=== PATIENT | male | born 1945 | race Caucasian/White ===

== ENCOUNTER 2016-10-15 12:49 | Observation (INO) | payer MEDICARE, OTHER ==
[~2016-10-15 12:49] MED LIST: AMLODIPINE BESY10 M1 PO; ASPIR 8181 MG PO; ASPIRIN325 M1 PO; ASPIRIN81 M1 CH; ATORVASTATIN CA40 M1 PO; AUGMENTIN875 MG PO; BYSTOLIC5 MG PO; CLONIDINE HCL0.3 M1 PO; CLOPIDOGREL75 M1 PO; COUMADIN2.5 MG PO; GABAPENTIN300 M1 PO; HUMALOG100 U/ML SQ; HYDROCHLOROTHIA25 M1 PO; HYDROCHLOROTHIA50 MG PO; LANTUS100 UNITS/ SC; LIPITOR20 MG PO; LISINOPRIL-HCT1 EAC2 PO; LISINOPRIL20 MG PO; LOSARTAN POTAS100 M1 PO; LOVENOX30 MG/0.1 SC; METOPROLOL TART50 M2 PO; MINOXIDIL2.5 M1 PO; MULTIVITAMIN1 TAB PO; NICOTINE TD; NORCO 5-325 TA1 EACH PO; NOVOLOG100 U/M SQ; NOVOLOG100 UNITS/; PLAVIX75 MG PO; PREDNISONE10 MG PO; [UNRECOGNIZED DRUG - OTHER] TD
[2016-10-15] MEDS ORDERED: ALDACTONE25 M1 PO (13:28)
[2016-10-15] MEDS ORDERED: IPRAT-ALBUT 0.5-3 ML NEB (13:42)
[2016-10-15] MEDS ORDERED: SYMBICORT 160-1 PUFF INH (13:42)
[2016-10-15] MEDS ORDERED: SYNTHROID50 MC1 PO (13:58)
[2016-10-15] MEDS ORDERED: ULTRAM50 M1 PO (14:16)
[2016-10-15 15:45] LABS: ABG CO2 ARTERIAL 29 mmol/L (21-27); ARTERIAL BLD GAS O2 SATURATION 98 % (95-98); ARTERIAL BLOOD GAS PCO2 46 mmHg (32-45); ARTERIAL PO2 94 mmHg (70-100); BICARBONATE 28 mmol/L (21-28); BLOOD GAS BASE EXCESS 3 mM/L (-/+3)
[2016-10-15 16:09] LABS: CREATININE 2.16 mg/dl (0.67-1.17); eGFR VALUE FOR BLACK 34 mL/Min
[2016-10-15 17:57] LABS: CSF APPEARANCE CLOUDY (CLEAR); CSF COLOR RED (COLORLESS); CSF RBC CT 2000 cmm (0); CSF TUBE NUMBER CSF TUBE 3; CSF WBC CT 7 cmm (0-10)
[2016-10-15 18:25] LABS: CSF GLUCOSE 102 mg/dl (40-75)
[2016-10-15 18:33] LABS: CSF EOSINOPHILS 1 % (0); CSF NEUTROPHILS 99 % (0-6)
[2016-10-16 05:02] LABS: BASO % 0.3 % (0-2); EOS % 1.5 % (0-7); EOSINOPHIL ABSOLUTE COUNT 0.2 tho/cmm (0.0-0.7); HCT-HEMATOCRIT 37.5 % (36.0-53.5); HGB-HEMOGLOBIN 11.8 gm/dl (13.5-17.0); IMMATURE GRANULOCYTES ABSOLUTE 0.01 tho/cmm (0-0.03); IMMATURE GRANULOCYTES PERCENT 0.1 % (0-0.3); LYMPH % 10.4 % (20-45); LYMPH ABSOLUTE COUNT 1.1 tho/cmm (0.8-4.5); MCHC MEAN CORPUSCULAR HGB CONC 31.5 % (32.0-36.0); MCV (MEAN CELL VOLUME) 88.9 fl (82.0-96.0); MONO % 6.3 % (0-12); MONOCYTE ABSOLUTE COUNT 0.6 tho/cmm (0.0-1.2); NEUTROPHIL ABSOLUTE COUNT 8.3 tho/cmm (1.6-8.0); NEUTROPHIL-AUTOMATED 8.3 tho/cmm (1.6-8.0); NEUTROPHILS % 81.4 % (40-80); PLATELET COUNT 208 tho/cmm (150-450); RED BLOOD COUNT 4.22 mil/cmm (4.40-5.70); RED CELL DISTRIBUTION WIDTH 13.7 % (12.4-16.4); WHITE BLOOD COUNT 10.2 tho/cmm (4.0-10.0)
[2016-10-16 05:13] LABS: ALB/GLOB RATIO 0.6 (0.8-2.0); ALBUMIN 2.8 g/dl (3.5-5.0); ALKALINE PHOSPHATASE 80 U/L (33-138); ALT/SGPT 16 U/L (12-78); ANION GAP 11 mmol/L (0-20); AST/SGOT 11 U/L (10-40); BILIRUBIN,TOTAL 0.7 mg/dl (0.0-1.5); BLOOD UREA NITROGEN 35 mg/dl (6-24); CALCIUM 8.5 mg/dl (8.5-10.5); CARBON DIOXIDE-VENOUS 32 mmol/L (22-32); CHLORIDE 107 mmol/l (96-110); CREATININE 2.17 mg/dl (0.60-1.30); GLUCOSE 133 mg/dL (70-110); SODIUM 146 mmol/L (135-145); eGFR VALUE FOR BLACK 34 mL/Min
[2016-10-17 04:37] LABS: BASO % 0.7 % (0-2); BASO ABSOLUTE COUNT 0.1 tho/cmm (0.0-0.2); EOS % 3.8 % (0-7); EOSINOPHIL ABSOLUTE COUNT 0.3 tho/cmm (0.0-0.7); HGB-HEMOGLOBIN 11.3 gm/dl (13.5-17.0); IMMATURE GRANULOCYTES ABSOLUTE 0.01 tho/cmm (0-0.03); IMMATURE GRANULOCYTES PERCENT 0.1 % (0-0.3); LYMPH % 19.9 % (20-45); LYMPH ABSOLUTE COUNT 1.5 tho/cmm (0.8-4.5); MCH (MEAN CORPUSCULAR HGB) 28.8 pg (28.0-32.0); MCHC MEAN CORPUSCULAR HGB CONC 32.3 % (32.0-36.0); MCV (MEAN CELL VOLUME) 89.1 fl (82.0-96.0); MEAN PLATELET VOLUME 10.9 cmc (9.4-12.4); MONO % 6.9 % (0-12); MONOCYTE ABSOLUTE COUNT 0.5 tho/cmm (0.0-1.2); NEUTROPHIL ABSOLUTE COUNT 5.1 tho/cmm (1.6-8.0); NEUTROPHIL-AUTOMATED 5.1 tho/cmm (1.6-8.0); NEUTROPHILS % 68.6 % (40-80); PLATELET COUNT 215 tho/cmm (150-450); RED BLOOD COUNT 3.93 mil/cmm (4.40-5.70); RED CELL DISTRIBUTION WIDTH 13.4 % (12.4-16.4); WHITE BLOOD COUNT 7.4 tho/cmm (4.0-10.0)
[2016-10-17 04:42] LABS: ANION GAP 10 mmol/L (0-20); BLOOD UREA NITROGEN 29 mg/dl (6-24); CALCIUM 8.4 mg/dl (8.5-10.5); CARBON DIOXIDE-VENOUS 31 mmol/L (22-32); CHLORIDE 107 mmol/l (96-110); CREATININE 2.24 mg/dl (0.60-1.30); GLUCOSE 209 mg/dL (70-110); POTASSIUM 4.1 mmol/L (3.7-5.1); SODIUM 144 mmol/L (135-145); eGFR VALUE FOR BLACK 33 mL/Min
[2016-10-17] MEDS ORDERED: CLEOCIN HCL300 M1 PO (10:35)
[2016-10-17] MEDS ORDERED: LASIX40 M1 PO (10:37)
== END 2016-10-17 12:20 ==
LOC: 5WE 12:49
PROVIDERS: Internal Medicine; Physician Assistant; Radiology Diagnostic Radiology; ADMIT Family Medicine
PROC: 009U3ZX Drainage of Spinal Canal, Percutaneous Approach, Diagnostic (ICD-10-PCS; principal; 2016-10-15)
PROC: B01BZZZ Fluoroscopy of Spinal Cord (ICD-10-PCS; 2016-10-15)
DX: G93.40 Encephalopathy, unspecified (principal); L03.115 Cellulitis of right lower limb; E66.09 Other obesity due to excess calories; E78.5 Hyperlipidemia, unspecified; I25.10 Atherosclerotic heart disease of native coronary artery without angina pectoris; J43.9 Emphysema, unspecified; L30.9 Dermatitis, unspecified; I73.9 Peripheral vascular disease, unspecified; E11.22 Type 2 diabetes mellitus with diabetic chronic kidney disease; I12.9 Hypertensive chronic kidney disease with stage 1 through stage 4 chronic kidney disease, or unspecified chronic kidney disease; N18.9 Chronic kidney disease, unspecified; J44.9 Chronic obstructive pulmonary disease, unspecified; D72.829 Elevated white blood cell count, unspecified; K21.9 Gastro-esophageal reflux disease without esophagitis; Z87.891 Personal history of nicotine dependence; Z90.49 Acquired absence of other specified parts of digestive tract; Z98.890 Other specified postprocedural states; Z96.662 Presence of left artificial ankle joint; Z96.642 Presence of left artificial hip joint; Z79.4 Long term (current) use of insulin
CPT/HCPCS: G0378; J0696; J1650; J1815; J2543; J3370; J7030